=== PATIENT | male | born 1990 | race African-American/Black ===

== ENCOUNTER 2018-11-04 07:43 | Emergency (ER) | payer OTHER ==
[2018-11-04 07:52] VITALS: BP 139/75
--- NOTE | 2018-11-04 08:13 | ER Document Report ---
ED Respiratory Problem - General Chief Complaint: Sinus Pain Stated Complaint: SINUS PAIN Time Seen by Provider: 11/04/18 08:00 Mode of Arrival: Ambulatory Information source: Patient Notes: Patient is a 27-year-old male comes to emergency room complaining of 3-week onset of cough congestion runny nose and sore throat. He also states that about a week ago he started with pinkeye and got some svva-eym-opbogsb eyedrops and seems to be doing better but the right eye had been crusting over and had discharge from it until about a day ago. He denies any fevers at this time. He has a productive yellowish green cough is having headache secondary to congestion. He has tried all the mvrc-gmw-xikdcps medications including Mucinex D. He does not make any progress with this at all. TRAVEL OUTSIDE OF THE [place] IN LAST 30 DAYS: No - HPI Patient complains to provider of: Cough Onset: Other - 3 weeks Duration: Continuous, Worse/persistent Initiating Event: Exertion Quality of pain: Achy, Pressure Severity: Moderate Pain Level: 3 Context: denies: Smoker Short of Breath: Mild Cough: Productive Sputum amount: Moderate Sputum color: Green, Yellow Sputum consistency: Thick Associated symptoms: Chills, Congestion, Cough, Facial pain, Headache Similar symptoms previously: Yes Recently seen / treated by doctor: No - Related Data Allergies/Adverse Reactions: Penicillins Allergy (Verified 11/04/18 07:45) Past Medical History - General Information source: Patient - Social History Smoking Status: Never Smoker Cigarette use (# per day): No Chew tobacco use (# tins/day): No Smoking Education Provided: No Frequency of alcohol use: None Drug Abuse: None 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 Family History: None, Reviewed & Not Pertinent Review of Systems - Review of Systems Constitutional: No symptoms reported EENT: See HPI, Eye discharge, Ear pain, Nose congestion, Nose discharge, Sinus pressure, Throat pain Cardiovascular: No symptoms reported Respiratory: See HPI, Cough, Sputum Gastrointestinal: No symptoms reported Genitourinary: No symptoms reported Male Genitourinary: No symptoms reported Musculoskeletal: No symptoms reported Skin: No symptoms reported Hematologic/Lymphatic: No symptoms reported Neurological/Psychological: No symptoms reported -: Yes All other systems reviewed and negative Physical Exam - Vital signs Vitals: Temp Pulse Resp BP Pulse Ox 97.6 F 67 16 139/75 H 99 11/04/18 07:50 11/04/18 07:50 11/04/18 07:50 11/04/18 07:50 11/04/18 07:50 Interpretation: Hypertensive - Notes Notes: PHYSICAL EXAMINATION: GENERAL: Patient is well-nourished well-developed physically fit 27-year-old male who is in no apparent distress on physical exam today. HEAD: Atraumatic, normocephalic. EYES: PERRLA, examination of the conjunctiva shows a right side to be a little bit more injected than the left there is some crusting around the lashes bilaterally no active discharge seen. ENT: Examination head and upper airway showed nasal mucosa to be erythematous and edematous with rhinorrhea noted. Rhinorrhea is slightly greenish yellow in color. Appears to be very thick. Also noted is bilateral nasal congestion which the left is worse than right. Patient displays some mild maxillary tenderness to palpation bilaterally sinuses show some mild tenderness to palpation as well. Examination of the ears show external canals to be normal- appearing there is no erythema or swelling. Bilateral TMs are bulging with moderate air-fluid levels noted. NECK: Normal range of motion, supple without lymphadenopathy LUNGS: Auscultation patient's lung willard show bilateral breath sounds breath sounds are decreased throughout but no wheeze rhonchi or rales are noted. HEART: Regular rate and rhythm without murmur Musculoskeletal: Normal range of motion, no pitting or edema. No cyanosis. NEUROLOGICAL: Normal speech, normal gait. Normal sensory, motor exams PSYCH: Normal mood, normal affect. SKIN: Warm, Dry, normal turgor, no rashes or lesions noted. Course - Re-evaluation Re-evalutation: 11/04/18 08:13 Patient is on ongoing upper respiratory presentation for the past 3 weeks. He has been having severe congestion with difficulty breathing because of this. He has had no measurable fever but has felt chills. 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 - Vital Signs Vital signs: Temp Pulse Resp BP Pulse Ox 97.6 F 67 16 139/75 H 99 11/04/18 07:50 11/04/18 07:50 11/04/18 07:50 11/04/18 07:50 11/04/18 07:50 Discharge - Discharge Clinical Impression: Acute sinusitis with symptoms greater than 10 days Condition: Good Disposition: HOME, SELF-CARE Instructions: Sinusitis ([facility]) Additional Instructions: Get a bottle of nasal saline generic brand is fine. Ailey her nose 2-3 sprays on each side 3-4 times a day to keep the nose moist and secretions then. Medications as prescribed return to ER for any concerns or problems Prescriptions: Azithromycin [Zithromax 250 mg Tablet] 250 mg PO ASDIR PRN #6 tablet PRN Reason: Fluticasone Propionate [Flonase Nasal Ailey 50 Mcg/Ailey 16 gm] 2 sprays NASL Q12 #1 inhaler Forms: Elevated Blood Pressure
== END 2018-11-04 08:45 | disposition home or self-care (01) ==
LOC: ER 07:43
DX: J01.90 Acute sinusitis, unspecified (principal); R51 Headache; R05 Cough; R09.81 Nasal congestion; R09.89 Other specified symptoms and signs involving the circulatory and respiratory systems; J02.9 Acute pharyngitis, unspecified
CPT/HCPCS: 99283